=== PATIENT | female | born 1945 | race Caucasian/White ===

== ENCOUNTER → 2016-07-03 | Outpatient (CLI) | payer OTHER, MEDICARE ==
--- NOTE | 2016-07-03 15:26 | DX ---
PA and Lateral Chest on July 03, 2016 History: Cough in a 71-year-old female; comparison prior study July 17, 2008. Findings: The heart and mediastinal contours are normal. Pulmonary vascularity is normal. There is c entral peribronchial thickening. Mild hyperexpansion is noted with flattening of the hemidiaphragms. There are no alveolar opacities seen to suggest pneumonia. Impression: Findings consistent with airways disease noted. Mild hyperexpansion could suggest an [place] ent of COPD.
== END ==
LOC: FIMAGING 11:23
PROVIDERS: ATTEND Internal Medicine Pulmonary Disease
DX: R91.8 Other nonspecific abnormal finding of lung field (principal); R05 Cough

== ENCOUNTER → 2018-09-14 | Outpatient (CLI) | payer OTHER, MEDICARE | LOC: FIMAGING 09:54 | PROVIDERS: ATTEND Internal Medicine | DX: R91.8 Other nonspecific abnormal finding of lung field (principal); R05 Cough; R07.9 Chest pain, unspecified ==

== ENCOUNTER → 2018-09-15 | Outpatient (CLI) | payer OTHER, MEDICARE | LOC: CIMAGING 14:13 | PROVIDERS: ATTEND Internal Medicine | DX: R91.1 Solitary pulmonary nodule (principal) | CPT/HCPCS: 71250-PO ==

== ENCOUNTER → 2018-12-16 | Outpatient (CLI) | payer OTHER, MEDICARE | LOC: CIMAGING 10:16 ==